=== PATIENT | female | born 1980 | race Caucasian/White ===

== ENCOUNTER 2017-03-16 15:02 | Outpatient (CLI) | payer OTHER ==
[2013-12-07 22:23] VITALS: BP 108/68
--- NOTE | 2017-03-16 18:03 | CONSULTATION REPORT ---
CONSULTING PHYSICIAN: Dr. Varun Connell HISTORY OF PRESENT ILLNESS: Janae Garcia is a self-referred 36-year-old white woman with a chief complaint of lupus. 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 She was given Plaquenil 200 mg which she takes 2 tablets once a day. She does not feel well on Plaquenil. She feels tired and achy. Her skin disease is mainly of the face and sun-exposed areas and she does not feel it has helped. She has not had an eye exam. She has some joint achiness and morning stiffness lasting maybe 30 to 35 minutes. The other issue has been the development of bilateral carpal tunnel syndrome when she underwent release on the right and requires it on the left. PAST MEDICAL HISTORY: 1. Hypothyroidism. 2. Lupus as above. 3. Two C-sections. 4. Carpal tunnel release on the right. PAST OBSTETRICAL HISTORY: 1. Two pregnancies. 2. Two children. 3. Zero abortions or miscarriages. PRESENT MEDICATIONS: 1. Levothyroxine 100 mcg daily. 2. Zoloft 100 mg daily. 3. Plaquenil 200 mg 2 tablets daily, which she stopped taking 2 weeks ago. ALLERGIES: She has no known drug allergies. SOCIAL HISTORY: The patient does smoke. She does not drink. She is . FAMILY HISTORY: Mother had autoimmune hepatitis and of uterine cancer. REVIEW OF SYSTEMS: Positive for rash, hives, photosensitivity, and anxiety. Otherwise, the patient has no change in her weight. No fatigue, weakness, or fevers. No dry, red, or painful eyes. No loss of vision. No dry mouth or mouth sores. No difficulty swallowing. No chest pain, shortness of breath, cough or wheezing. No history of pleurisy. No nausea or vomiting or diarrhea. No dark stools or bloody stools. No urinary symptoms. No frothy pink urine. No numbness or tingling of her extremities, except for her hands. No swollen or tender lymph nodes. PHYSICAL EXAMINATION: General: She looks well. Vital Signs: Height: 5 feet 6 inches. Weight: 256. T: 97.4, R: 20, heart rate 60, BP: 130/71. HEENT: She does have some short frontal hairs, but no alopecia. She has a rash mainly on the forehead. She has no mal or rash. No stomatitis or glossitis. No parotid or submandibular swelling. No cervical or supraclavicular lymph nodes. LUNGS: Clear with no crackles or wheezing. HEART: Regular rhythm. ABDOMEN: Soft and nontender. No organomegaly. VASCULAR: No edema or cyanosis. PERIPHERAL JOINTS: DIPs, PIPs, MCPs, wrists, elbows, shoulders, hips, knees, ankles, and feet were nontender and no deformities. DIAGNOSTIC STUDIES: I looked at some old labs in 2016 and she had a positive TOSHA, extractable nuclear antigens were negative, double stranded DNA was negative. IMPRESSION: 1. 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 2. Ineffectiveness and intolerance to Plaquenil. PLAN: We will proceed with [facility] testing. Update a CBC, CMP, sedimentation rate, CRP , as well as TSH, free T4 and T3. 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 I will give her a call when I am here in 4 weeks. She has been using Coppertone Sunscreen. I have asked her to stop that. I gave her some samples of the Blue Lizard [place] Sunscreen to use mainly on her face. I discussed again sun protection, including wearing of a wide-rimmed hat, etc. Thank you very much. cc: Dr. Olya HERRERA
== END 2017-03-16 15:10 ==
LOC: RHEU 15:02
PROVIDERS: ATTEND Internal Medicine
DX: M32.9 Systemic lupus erythematosus, unspecified (principal)
CPT/HCPCS: 99213; 99214

== ENCOUNTER 2017-03-19 07:41 | Outpatient (CLI) | payer OTHER ==
[2013-12-07 22:23] VITALS: BP 108/68
[2017-03-19 08:16] LABS: BASOPHILS % 0.7 (0.0-1.5); EOSINOPHILS % 4.4 % (0.0-6.8); MEAN CORPUSCULAR HEMOGLOBIN 30.8 pg (28.0-34.0); MEAN CORPUSCULAR VOLUME 93.1 fl (80.0-100.0); MONOCYTES % 6.9 % (0.0-11.0); NEUTROPHILS # 3.4 # k/uL (1.4-7.7)
[2017-03-19 08:20] LABS: APPEARANCE,URINE Clear (CLEAR); COLOR,URINE Yellow (YELLOW); OCCULT BLOOD,URINE 3+ (NEGATIVE); PH URINE 6.5 (5.0 - 8.0); UROBILINOGEN URINE 0.2 Eu (0.2-1.0)
[2017-03-19 09:03] LABS: eGFR (African) > 60; eGFR (Non-African) > 60
== END 2017-03-19 07:42 ==
LOC: LAB 07:41
PROVIDERS: ATTEND Internal Medicine
DX: M32.9 Systemic lupus erythematosus, unspecified (principal); Z79.899 Other long term (current) drug therapy
CPT/HCPCS: 36415; 80053; 81002; 84439; 84443; 84481; 85025; 85651; 86140

== ENCOUNTER 2017-07-27 20:14 | Emergency (ER) | payer OTHER ==
--- NOTE | 2017-07-27 20:22 | ED Physician Documentation ---
General Adult - HISTORIAN Historian: patient, spouse - HPI Stated Complaint: cough x 5 days Chief Complaint: Fever Onset: days ago (5) Timing: still present, worse Severity: moderate Further Comments: yes (She states she started with what she felt was a cold 5 days ago. She has since had increase in cough, fatigue, fever, aches and now she has a productive cough that she feels hurts her right lower chest when she coughs. She did see her PCP and she was told it would be treated like "the flu even though I dont have the flu" she did get cough med that is not helping. She does not sleep. She is very tired.) Last known Well Date: 07/23/17 Last Known Well Time: 08:00 Last known Well Code/Unknown Code: Unknown - ROS CONST: fever, sweating, recent illness EYES/ENT: sore throat CVS/RESP: shortness of breath, cough GI/: denies: vomiting, nausea MS/SKIN/LYMPH: none NEURO/PSYCH: headache, dizziness - PAST HX Past History: none Other History: none Surgeries/Procedures: none Immunizations: referred to PCP Allergies/Adverse Reactions: Allergies Allergy/AdvReac Type Severity Reaction Status Date / Time No Known Drug Allergies Allergy Verified 07/27/17 20:31 Home Medications: Ambulatory Orders Medication Instructions Recorded Benzonatate [Tessalon] 100 mg PO TID PRN #20 capsule 07/27/17 - SOCIAL HX Smoking History: non-smoker Alcohol Use: none Drug Use: none - FAMILY HX Family History: No - VITAL SIGNS Vital Signs: Vital Signs Temp Pulse Resp BP Pulse Ox 108/68 12/07/13 22:12 - REVIEWED ASSESSMENTS Nursing Assessment Reviewed: Yes Vitals Reviewed: Yes Progress - Progress Progress: Labs and xray discussed Viral components discussed ED Results Lab/Radiology - Radiology Radiology Impressions: Pa and lateral chest Clinical history : Coughing Technique pa and lateral upright Findings: The lung watkins are clear. I see no hilar or mediastinal mass. There is no pleural effusion or lesion of the bony thorax. Impression: No acute pulmonary disease Electronically signed on Jul 27, 2017 9:00:47 PM DRILL INSTRUCTOR by: Pedro Engle General Adult Physical Exam - PHYSICAL EXAM GENERAL APPEARANCE: no distress EENT: JALYN, TM's nml, pharyngeal erythema NECK: normal inspection RESPIRATORY: no resp distress, chest non-tender, wheezes (expiratory ) CVS: reg rate & rhythm, heart sounds normal, equal pulses, no murmur ABDOMEN: soft EXTREMITIES: non-tender, normal range of motion NEURO: oriented X3, CN's nml as tested, motor nml, sensation nml Discharge Clincal Impression: Cough in adult patient Prescriptions: Benzonatate [Tessalon] 100 mg PO TID PRN #20 capsule PRN Reason: Cough Referrals: Olya Moscoso MD [Primary Care Provider] - 2 Days Additional Instructions: Tessalon Pearls 100 mg RX for cough Increase fluids Rest OTC Meds for symptoms Return to ER or PCP for any change or concern in symptoms Condition: Stable Disposition: 01 HOME, SELF-CARE Decision to Admit: NO Date of Decison to Admit: 07/27/17 Decision Time: 21:09
[2017-07-27 21:01] VITALS: BP 97/61
[2017-07-27] MEDS ORDERED: BENZONATATE 100 MG CAPSULE PO ONE (21:06)
[2017-07-27] MEDS ORDERED: methylPREDNISolone ACETATE 80 MG/ML VIAL IM ONE (21:07)
--- NOTE | 2017-07-27 22:19 | Diagnostic Imaging Report ---
TRICIA MILLER [facility] [address] [facility] [address] [place], [place]. [address] Report Submission Date: Jul 27, 2017 9:00:47 PM DIVING BOARD ASSEMBLER Patient Study Name: MILDRED ALICEA Date: Jul 27, 2017 8:48:45 PM DIVING BOARD ASSEMBLER Modality Type: CR Gender: F Description: CHEST : 82 Institution: [facility] Physician: TRICIA MILLER Pa and lateral chest Clinical history : Coughing Technique pa and lateral upright Findings: The lung watkins are clear. I see no hilar or mediastinal mass. There is no pleural effusion or lesion of the bony thorax. Impression: No acute pulmonary disease Electronically signed on Jul 27, 2017 9:00:47 PM DIVING BOARD ASSEMBLER by: Pedro HERRERA
[2017-07-29 07:19] LABS: URINE HCG NEGATIVE (NEGATIVE)
== END 2017-07-27 21:19 | disposition home or self-care (01) ==
LOC: ED 20:14
DX: R05 Cough (principal)
CPT/HCPCS: 71020; J1040; 96372; 99283

== ENCOUNTER 2018-06-04 14:28 | Outpatient (CLI) | payer OTHER ==
[2018-06-04 15:23] LABS: BASOPHILS % 0.4 (0.0-1.5); EOSINOPHILS % 2.7 % (0.0-6.8); MEAN CORPUSCULAR HEMOGLOBIN 30.4 pg (28.0-34.0); MONOCYTES % 7.7 % (0.0-11.0); NEUTROPHILS # 4.8 # k/uL (1.4-7.7)
[2018-06-04 15:34] LABS: eGFR (Non-African) > 60
--- NOTE | 2018-06-04 15:38 | Diagnostic Imaging Report ---
ISAIAH KEY [facility] [address] [facility] [address] [place] [address]. [id number] Report Submission Date: Jun 04, 2018 3:18:55 PM STOCK ROOM MANAGER Patient Study Name: MILDRED ALICEA Date: Jun 04, 2018 2:45:32 PM STOCK ROOM MANAGER Modality Type: US Gender: F Description: US RUQ : 82 Institution: [facility] Physician: ISAIAH KEY Examination: Ultrasound gallbladder History: US of ruq Findings: Sonographic evaluation of the right upper quadrant demonstrates the gallbladder with a large stone centrally measuring 2.4 cm. Gallbladder wall measures 1.7 mm. Common bile duct measures 3.7 mm. No intrahepatic biliary dilation. Liver demonstrates increased echogenicity. No mass or cyst. Normal flow on color analysis. Right kidney measures 10.1 cm in length. No cortical mass or cyst. No hydronephrosis. Pancreatic region without gross irregularity. Impression: Large gallstone without evidence for gallbladder wall thickening or obstruction. Fatty liver. Electronically signed on Jun 04, 2018 3:18:55 PM STOCK ROOM MANAGER by: Curt HERRERA
== END 2018-06-04 14:30 ==
LOC: LAB 14:28
PROVIDERS: ATTEND Family Medicine
DX: R10.11 Right upper quadrant pain (principal)
CPT/HCPCS: 36415; 76705; 80053; 85025

== ENCOUNTER 2019-04-14 15:26 | Outpatient (CLI) | payer OTHER | END 2019-04-14 15:28 | LOC: LAB 15:26 | PROVIDERS: ATTEND Family Medicine | DX: E03.9 Hypothyroidism, unspecified (principal) | CPT/HCPCS: 36415; 84443 ==